=== PATIENT | female | born 1960 | race Caucasian/White ===

== ENCOUNTER 2018-06-09 14:35 | Observation (INO) | payer BC ==
[~2018-06-09] VITALS: Ht 152.4 cm; Wt 92.5 kg
[~2018-06-09 14:35] MED LIST: Asmanex Twisthaler 2 IH; Atacand PO; Calcium Carbonate,Ca PO; Cardizem CD,Cartia X PO; Colace PO; Flonase BOTH NARES; MECLIZINE HCL25 MG PO; Magnesium PO; Motrin PO; Percocet 5/325,Endoc PO; Protonix PO; Proventil,Ventolin H IH; ZOFRAN4 MG PO; ZYRTEC10 M3 PO; [UNRECOGNIZED DRUG - OTHER] PO
[2018-06-09 15:36] LABS: HEMATOCRIT 42.2 % (36.0-46.0); HEMOGLOBIN 15.3 G/DL (11.9-15.5); MCH 31.1 PG (29.0-34.0); MCHC 36.3 G/DL (30.0-36.0); MCV 85.8 FL (83-99); PLATELET COUNT 251 K/uL (156-360); RBC DIS.WIDTH-CV 12.1 % (11.8-14.6); RBC DIS.WIDTH-SD 38.2 % (39-53); RED BLOOD COUNT 4.92 M/uL (3.80-5.20); WHITE BLOOD COUNT 13.9 K/uL (4.1-10.2)
[2018-06-09 15:56] LABS: CHLORIDE 90 MEQ/L (99-109); SODIUM 128 MEQ/L (136-147)
[2018-06-09 16:02] LABS: CREATININE 0.6 MG/DL (0.6-1.3); GFR ESTIMATE (CALCULATED) > 59 mL/min/; GLUCOSE 127 mg/dL (70-99); UREA NITROGEN (BUN) 12 mg/dL (9-23)
[2018-06-09] MEDS ORDERED: CALCIUM 500 +1 EAC2 PO (19:47)
[2018-06-09] MEDS ORDERED: PROAIR HFA8.5 GM IH (19:47)
[2018-06-09] MEDS ORDERED: PANTOPRAZOLE SO40 MG PO (19:48)
[2018-06-09] MEDS ORDERED: CARTIA XT240 MG PO (19:48)
[2018-06-09] MEDS ORDERED: ATACAND32 MG PO (19:48)
[2018-06-09] MEDS ORDERED: FLONASE16 G1 BOTH NARES (19:49)
[2018-06-09] MEDS ORDERED: ADVIL200 MG PO (19:49)
[2018-06-09] MEDS ORDERED: MAGNESIUM250 MG PO (19:50)
[2018-06-09] MEDS ORDERED: ASMANEX TW200 MICRO1 IH (19:50)
[2018-06-09 23:07] LABS: MAGNESIUM 1.6 mg/dl (1.3-2.7)
[2018-06-10 00:03] VITALS: BP 144/82
[2018-06-10 02:12] LABS: ALBUMIN 4.3 G/DL (3.2-4.8); ALKALINE PHOSPHATASE 79 IU/L (3-129); ALT (GPT) 18 IU/L (3-49); AST (GOT) 26 IU/L (2-34); DIRECT BILIRUBIN 0.2 mg/dL (0.0-0.3); TOTAL BILIRUBIN 0.8 MG/DL (0.0-1.0); TOTAL PROTEIN 7.3 G/DL (6.4-8.3)
[2018-06-10 06:46] LABS: BASOPHIL (%) 0.5 % (0-1); BASOPHIL COUNT 0.1 K/uL (0-0.1); EOSINOPHIL (%) 1.4 % (0-5); EOSINOPHIL COUNT 0.2 K/uL (0-0.3); HEMOGLOBIN 14.1 G/DL (11.9-15.5); IMMATURE GRANULOCYTE (%) 0.9 % (0.0-0.7); LYMPHOCYTE (%) 17.8 % (15-42); MCH 30.5 PG (29.0-34.0); MCHC 34.4 G/DL (30.0-36.0); MCV 88.6 FL (83-99); MONOCYTE (%) 8.5 % (3-12); NEUTROPHIL (%) 70.9 % (45-76); PLATELET COUNT 245 K/uL (156-360); RBC DIS.WIDTH-CV 12.3 % (11.8-14.6); RBC DIS.WIDTH-SD 39.9 % (39-53); RED BLOOD COUNT 4.63 M/uL (3.80-5.20); WHITE BLOOD COUNT 11.2 K/uL (4.1-10.2)
[2018-06-10 07:08] LABS: ALBUMIN 3.7 G/DL (3.2-4.8); ALKALINE PHOSPHATASE 68 IU/L (3-129); ALT (GPT) 15 IU/L (3-49); AST (GOT) 22 IU/L (2-34); CHLORIDE 97 MEQ/L (99-109); CREATININE 0.5 MG/DL (0.6-1.3); GFR ESTIMATE (CALCULATED) > 59 mL/min/; GLUCOSE 109 mg/dL (70-99); POTASSIUM 4.5 MEQ/L (3.7-5.4); UREA NITROGEN (BUN) 9 mg/dL (9-23)
[2018-06-10 07:18] LABS: SODIUM 135 MEQ/L (136-147); TOTAL BILIRUBIN 1.2 MG/DL (0.0-1.0)
[2018-06-10 08:01] VITALS: BP 190/89
[2018-06-10 08:10] VITALS: BP 146/82
== END 2018-06-10 09:32 | disposition home or self-care (01) ==
LOC: EME 14:35 → EDOF 21:23 → 5EAST 21:23 → EDOF 21:48 → ENRESERV 21:52 → 5EAST 23:06
PROVIDERS: Hospitalist; Physician Assistant Medical
DX: R42 Dizziness and giddiness (principal); E87.1 Hypo-osmolality and hyponatremia; I10 Essential (primary) hypertension; F10.10 Alcohol abuse, uncomplicated; Z86.19 Personal history of other infectious and parasitic diseases; H53.8 Other visual disturbances; J45.909 Unspecified asthma, uncomplicated; E11.9 Type 2 diabetes mellitus without complications; E83.42 Hypomagnesemia; Z87.59 Personal history of other complications of pregnancy, childbirth and the puerperium; Z92.21 Personal history of antineoplastic chemotherapy; K21.9 Gastro-esophageal reflux disease without esophagitis; L40.9 Psoriasis, unspecified; F32.9 Major depressive disorder, single episode, unspecified; F41.9 Anxiety disorder, unspecified; Z68.39 Body mass index [BMI] 39.0-39.9, adult; Z90.710 Acquired absence of both cervix and uterus; Z90.79 Acquired absence of other genital organ(s); Z90.722 Acquired absence of ovaries, bilateral; Z87.891 Personal history of nicotine dependence
CPT/HCPCS: 70450; 70551; 71045; 80048; 80053; 80076; 83735; 85025; 85027; 85610; 85730; 93005; 94640; 94799; 99281; 99285; G0378; J1650; J2765; J7030